=== PATIENT | male | born 1980 | race Caucasian/White ===

== ENCOUNTER 2018-05-03 07:19 | Emergency (ER) | payer SELFPAY ==
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
--- NOTE | 2018-05-03 08:44 | CR ---
INDICATION: Toe injury COMPARISON: none TECHNIQUE: Three-view left 5th toe FINDINGS: There is a oblique angulated displaced fracture within the distal shaft of the 5th proximal phalanx. 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 The distal phalanx appears intact. The MTP joint appears intact. No fractures are identified within the visualized adjacent 2nd 3rd and 4th toes. There is no evidence of a radiopaque foreign body. IMPRESSION: Angulated displaced fracture noted within the distal shaft of the 5th proximal phalanx Dictated by Rod Oliveros MD @ May 03 2018 8:41AM Signed by Dr. Rod Oliveros @ May 03 2018 8:43AM
--- NOTE | 2018-05-03 10:01 | CR ---
EXAMINATION: Left foot HISTORY: Pain COMPARISON: 05/03/2018 TECHNIQUE: 2 views FINDINGS/IMPRESSION: Proximal fifth phalanx fracture appears closer to anatomic alignment. Remaining osseous structures and joint spaces appear preserved. Mild lateral soft tissue swelling.
[2018-05-03 17:58] VITALS: BP 155/84
== END 2018-05-03 09:30 | disposition home or self-care (01) ==
LOC: MW.ED 07:19
DX: S92.512A Displaced fracture of proximal phalanx of left lesser toe(s), initial encounter for closed fracture (principal); E10.9 Type 1 diabetes mellitus without complications; W23.0XXA Caught, crushed, jammed, or pinched between moving objects, initial encounter
CPT/HCPCS: 73620-26-LT; 73620-LT; 73660-26-T4; 73660-T4; 99283

== ENCOUNTER 2018-06-25 09:28 | Emergency (ER) | payer MEDICAID, OTHER ==
[2018-06-25] MEDS ORDERED: Sodium Chloride 0.9% 1,000 ML IV ONE ×2 (09:55→12:26)
[2018-06-25] MEDS ORDERED: Pantoprazole 40 MG Vial IVPUSH ONE (09:55)
[2018-06-25] MEDS ORDERED: Ondansetron 4 MG/2 ML SDV IVPUSH ONE (09:55)
[2018-06-25] MEDS ORDERED: Ketorolac 30 MG/ML SDV IVPUSH ONE (09:55)
[2018-06-25] MEDS ORDERED: Sodium Chloride 0.9% 20 ML ONE (10:08)
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
[2018-06-25 10:48] LABS: CHLORIDE,CL 101 mmol/L (98-107); SODIUM,NA 139 mmol/L (136-148)
[2018-06-25] MEDS ORDERED: Morphine 2 MG/ML Syringe IVPUSH ONE (12:33)
[2018-06-25] MEDS ORDERED: Iopamidol 755 MG/ML 500 ML Multipack Bottle IVPUSH STA (12:55)
--- NOTE | 2018-06-25 13:18 | CR ---
INDICATION: Pain shortness of breath TECHNIQUE: Two view chest. FINDINGS: The lungs are clear. The heart, mediastinum and pulmonary vessels are of normal size. There is no evidence of pleural disease. IMPRESSION: Negative chest. Dictated by Dayanna Sandhu MD @ Jun 25 2018 1:16PM Signed by Dr. Dayanna Sandhu @ Jun 25 2018 1:16PM
--- NOTE | 2018-06-25 13:25 | CT ---
INDICATION: pain, vomiting, diarrhea with blood Indication: Pain. Vomiting. Diarrhea with blood. Technique: CT of the abdomen pelvis. 100 cc of Isovue 370 IV. Coronal/sagittal reconstruction images. Comparison: None. Findings: Lung bases: There is no pleural or pericardial effusion. The heart size is normal. There is no acute airspace disease. There is no basilar pneumothorax. Abdomen/pelvis: The hepatic morphology is normal. There are no inflammatory changes adjacent to the gallbladder. No dilation of intrahepatic biliary radicals. The spleen size is normal. There is a benign right renal cyst. This measures 11 millimeters in dimension. No perinephric inflammatory changes. No striated nephrogram. The spleen size is normal. There is no pancreatic mass, pancreatic duct dilation, or glandular atrophy. Pelvic phleboliths. Urinary bladder is within normal limits. There is no wall thickening within the small bowel or colon. There is equivocal wall thickening present in the transverse colon, which may be secondary to collapse. No mucosal hyper enhancement. No pneumatosis or portal venous gas. No adenopathy by size criteria in the pelvis, retroperitoneum, gastrohepatic ligament, small bowel mesentery. There is questionable narrowing of the proximal celiac axis, which could be secondary to median arcuate ligament compression. This is seen best on image 36 of series 201. The bone windows demonstrate a sclerotic lesion in the right iliac bone, which measures 7 millimeters in dimension. This is indeterminate. No lytic bone lesions are identified. Impression: 1. Equivocal wall thickening within the transverse colon, which may be secondary to collapse. Infectious colitis is an additional consideration given the clinical presentation. 2. There is no evidence for small bowel or colonic obstruction. No pneumatosis, portal venous gas, free air, or drainable fluid collection. 3. Suspected compression of the origin of the celiac axis. Consider median arcuate ligament syndrome. CT angiogram may be obtained on a nonemergent basis to further assess. 4. SMA and JOSE are widely patent. Dictated by Brody Gage MD @ 06/25/2018 1:24:48 PM Please note that all CT scans at this facility use dose modulation, iterative reconstruction, and/or weight-based dosing when appropriate to reduce radiation dose to as low as reasonably achievable. Dictated by: Brody Gage MD @ 06/25/2018 13:25:03 (Electronically Signed)
[2018-06-25 18:16] VITALS: BP 114/72
== END 2018-06-25 14:48 | disposition home or self-care (01) ==
LOC: MW.ED 09:28
DX: K52.9 Noninfective gastroenteritis and colitis, unspecified (principal); E10.9 Type 1 diabetes mellitus without complications
CPT/HCPCS: 36600; 71046; 74177; 80053; 81001; 82009; 82803; 82962; 83690; 84484; 85025; 87804; 93005; 96361; 96374; 96375; 99284; C9113; J1885; J2270; J2405; J7040; Q9967

== ENCOUNTER 2022-01-19 08:27 | Day surgery (SDC) | payer OTHER ==
[~2022-01-19 08:27] MED LIST: Lactated Ringers 1,000 ML IV SCH
[2022-01-19] MEDS ORDERED: Lidocaine 2% 5 ML SDV ONE (09:12)
[2022-01-19] MEDS ORDERED: Propofol 200 MG/20 ML SDV ONE ×3 (09:12→10:14)
[2022-01-19] MEDS ORDERED: fentaNYL 100 MCG/2 ML SDV ONE (09:13)
[2022-01-19] MEDS ORDERED: Lactated Ringers 1,000 ML IV SCH (10:30)
[2022-01-19 10:55] VITALS: PULSE 61
[2022-01-19 12:04] VITALS: BP 105/59
== END 2022-01-19 11:50 | disposition home or self-care (01) ==
LOC: MW.SDS 08:27
PROVIDERS: ATTEND Surgery
DX: Z12.11 Encounter for screening for malignant neoplasm of colon (principal); D12.8 Benign neoplasm of rectum; K62.5 Hemorrhage of anus and rectum; E10.9 Type 1 diabetes mellitus without complications; F17.200 Nicotine dependence, unspecified, uncomplicated; Z80.0 Family history of malignant neoplasm of digestive organs; Z79.84 Long term (current) use of oral hypoglycemic drugs
CPT/HCPCS: 45385; 82947; J2704; J3010; J7120

== ENCOUNTER 2022-04-20 19:10 | Emergency (ER) | payer MEDICAID ==
[2022-04-20] MEDS ORDERED: Sodium Chloride 0.9% 1,000 ML IV ONE ×2 (20:02→21:21)
[2022-04-20 21:11] LABS: CARBON DIOXIDE,CO2 28.2 mmol/L (21.0-32.0); POTASSIUM,K 4.2 mmol/L (3.5-5.1)
[2022-04-20] MEDS ORDERED: Ondansetron 4 MG/2 ML SDV IVPUSH ONE (21:26)
[2022-04-20 23:08] VITALS: PULSE 86
[2022-04-20 23:24] VITALS: BP 135/81
== END 2022-04-20 23:00 | disposition home or self-care (01) ==
LOC: MW.ED 19:10
DX: K52.9 Noninfective gastroenteritis and colitis, unspecified (principal); E10.9 Type 1 diabetes mellitus without complications; Z91.014 Allergy to mammalian meats; Z91.14 Patient's other noncompliance with medication regimen
CPT/HCPCS: 36415; 71045; 80053; 81003; 82009; 82947; 83690; 83735; 84443; 84484; 85025; 93005; 96361; 96374; 99284; J2405; J7030

== ENCOUNTER 2023-03-03 13:27 | Emergency (ER) | payer MEDICAID ==
[2023-03-03] MEDS ORDERED: Sodium Chloride 0.9% 1,000 ML IV ONE (13:30)
[2023-03-03] MEDS ORDERED: Ketorolac 30 MG/ML SDV IVPUSH ONE (14:30)
[2023-03-03] MEDS ORDERED: Ondansetron 4 MG/2 ML SDV IVPUSH ONE (14:30)
[2023-03-03 14:34] LABS: BASE EXCESS VENOUS 2.4 (-2.0-3.0); PH,VENOUS 7.41 (7.31-7.41)
[2023-03-03 14:40] LABS: APPEARANCE,URINE CLEAR; BILIRUBIN,URINE NEGATIVE (NEGATIVE); COLOR,URINE YELLOW; GLUCOSE,URINE NEGATIVE (NEGATIVE); KETONES,URINE 15 mg/dL (NEGATIVE); LEUKOCYTE ESTERASE,URINE NEGATIVE (NEGATIVE); NITRITE,URINE NEGATIVE (NEGATIVE); OCCULT BLOOD,URINE NEGATIVE (NEGATIVE); PROTEIN,URINE 30 mg/dL (NEGATIVE); UROBILINOGEN,URINE 0.2 EU/dL (<2.0)
[2023-03-03 14:42] LABS: BASOPHILS ABSOLUTE AUTO 0.03 K/uL (0.00-0.20); BASOPHILS PERCENT AUTO 0.4 % (0.0-1.0); EOSINOPHILS ABSOLUTE AUTO 0.01 K/uL (0.00-0.45); EOSINOPHILS PERCENT AUTO 0.1 % (0.0-6.0); HEMATOCRIT 43.2 % (42.0-52.0); HEMOGLOBIN 14.9 g/dL (14.0-18.0); IMMATURE GRAN ABSOLUTE AUTO 0.02 K/uL (0.00-0.05); IMMATURE GRAN PERCENT AUTO 0.3 % (0.0-0.4); LYMPHOCYTES ABSOLUTE AUTO 1.36 K/uL (1.00-4.80); LYMPHOCYTES PERCENT AUTO 18.7 % (24.0-44.0); MEAN CORPUSCULAR HEMOGLOBIN 29.7 pg (28.0-32.0); MEAN CORPUSCULAR HGB CONC 34.5 g/dL (32.0-36.0); MEAN CORPUSCULAR VOLUME 86.1 fL (83.0-99.0); MONOCYTES ABSOLUTE AUTO 0.62 K/uL (0.00-0.80); MONOCYTES PERCENT AUTO 8.5 % (0.0-8.0); NEUTROPHILS ABSOLUTE AUTO 5.22 K/uL (1.80-7.70); PLATELET COUNT,PLT 274 K/uL (150-400); RED BLOOD CELL COUNT 5.02 M/uL (4.52-5.90); WHITE BLOOD CELL COUNT,WBC 7.26 K/uL (3.9-11.3)
[2023-03-03] MEDS ORDERED: Morphine 4 MG/ML Syringe IVPUSH ONE (14:57)
[2023-03-03 15:04] LABS: LACTIC ACID 0.9 mmol/L (0.4-2.0)
[2023-03-03 15:06] LABS: BACTERIA,URINE RARE (NEGATIVE); EPITHELIAL CELLS,URINE NOT SEEN (NONE-FEW); RBC,URINE 0-1 (0-2/HPF); WBC,URINE 0-1 (0-5/HPF)
[2023-03-03 15:07] LABS: MUCUS,URINE LIGHT (NONE-MOD)
[2023-03-03 15:28] LABS: A/G RATIO 1.1 (0.9-1.6); ALBUMIN 3.9 g/dL (3.4-5.0); BILIRUBIN TOTAL 0.5 mg/dL (0.2-1.0); CALCIUM 9.3 mg/dL (8.5-10.1); CARBON DIOXIDE,CO2 25.8 mmol/L (21.0-32.0); CREATININE 0.9 mg/dL (0.8-1.3); EST CRCL DRUG DOSING (CG) 129.93 mL/min; MAGNESIUM 1.8 mg/dL (1.8-2.4); POTASSIUM,K 4.2 mmol/L (3.5-5.1); PROTEIN TOTAL,TP 7.4 g/dL (6.4-8.2)
[2023-03-03 16:26] VITALS: BP 144/94; PULSE 73
== END 2023-03-03 16:25 | disposition home or self-care (01) ==
LOC: MW.ED 13:27
DX: K29.70 Gastritis, unspecified, without bleeding (principal); E10.8 Type 1 diabetes mellitus with unspecified complications; Z79.4 Long term (current) use of insulin
CPT/HCPCS: 36415; 80053; 81001; 82009; 82803; 83605; 83690; 83735; 85025; 96361; 96374; 96375; 99284; J1885; J2270; J2405; J7030

== ENCOUNTER 2023-03-24 11:57 | Emergency (ER) | payer MEDICAID ==
[2023-03-24 12:23] VITALS: BP 165/102
[2023-03-24] MEDS ORDERED: Sodium Chloride 0.9% 1,000 ML IV ONE (13:25)
[2023-03-24] MEDS ORDERED: Ketorolac 30 MG/ML SDV IVPUSH ONE (13:25)
[2023-03-24] MEDS ORDERED: Ondansetron 4 MG/2 ML SDV IVPUSH ONE (13:25)
[2023-03-24 13:50] LABS: BASE EXCESS VENOUS 4.4 (-2.0-3.0); PH,VENOUS 7.43 (7.31-7.41)
[2023-03-24 13:52] LABS: BASOPHILS ABSOLUTE AUTO 0.01 K/uL (0.00-0.20); BASOPHILS PERCENT AUTO 0.1 % (0.0-1.0); HEMATOCRIT 44.8 % (42.0-52.0); HEMOGLOBIN 15.4 g/dL (14.0-18.0); IMMATURE GRAN ABSOLUTE AUTO 0.02 K/uL (0.00-0.05); IMMATURE GRAN PERCENT AUTO 0.3 % (0.0-0.4); LYMPHOCYTES ABSOLUTE AUTO 0.92 K/uL (1.00-4.80); LYMPHOCYTES PERCENT AUTO 12.4 % (24.0-44.0); MEAN CORPUSCULAR HEMOGLOBIN 29.5 pg (28.0-32.0); MEAN CORPUSCULAR HGB CONC 34.4 g/dL (32.0-36.0); MEAN CORPUSCULAR VOLUME 85.8 fL (83.0-99.0); MEAN PLATELET VOLUME 10.8 fL (9.4-12.4); MONOCYTES ABSOLUTE AUTO 0.51 K/uL (0.00-0.80); MONOCYTES PERCENT AUTO 6.9 % (0.0-8.0); NEUTROPHILS ABSOLUTE AUTO 5.98 K/uL (1.80-7.70); NEUTROPHILS PERCENT AUTO 80.3 % (41.0-71.0); PLATELET COUNT,PLT 274 K/uL (150-400); RED BLOOD CELL COUNT 5.22 M/uL (4.52-5.90); WHITE BLOOD CELL COUNT,WBC 7.44 K/uL (3.9-11.3)
[2023-03-24 14:28] LABS: APPEARANCE,URINE CLOUDY; BILIRUBIN,URINE NEGATIVE (NEGATIVE); COLOR,URINE YELLOW; GLUCOSE,URINE NEGATIVE (NEGATIVE); KETONES,URINE >=80 mg/dL (NEGATIVE); LEUKOCYTE ESTERASE,URINE NEGATIVE (NEGATIVE); NITRITE,URINE NEGATIVE (NEGATIVE); OCCULT BLOOD,URINE NEGATIVE (NEGATIVE); PROTEIN,URINE TRACE mg/dL (NEGATIVE)
[2023-03-24] MEDS ORDERED: Alum Hydro/Mag Hydro/Simeth XS 15 ML, Metoclopramide 5 MG, Lidocaine 2% 5 ML PO ONE ×3 (14:38)
[2023-03-24 14:39] LABS: AMPHETAMINES SCREEN, URINE NEGATIVE (CUTOFF=500); BARBITURATE SCREEN,URINE NEGATIVE (CUTOFF=200); BENZODIAZEPINES SCREEN,URINE NEGATIVE (CUTOFF=150); BUPRENORPHINE SCREEN,URINE NEGATIVE (CUTOFF=10); METHADONE SCREEN, URINE NEGATIVE (CUTOFF=200); METHAMPHETAMINES SCREEN, URINE NEGATIVE (CUTOFF=500); OXYCODONE SCREEN,URINE NEGATIVE (CUT0FF=100); PCP SCREEN,URINE NEGATIVE (CUTOFF=25); THC SCREEN,URINE 20 NG/ML PRESUMPTIVE POSITIVE (CUTOFF=50)
[2023-03-24 14:41] LABS: AMORPHOUS SEDIMENT,URINE MODERATE (NEGATIVE); BACTERIA,URINE 1+ (NEGATIVE); EPITHELIAL CELLS,URINE RARE (NONE-FEW); RBC,URINE 0-1 (0-2/HPF); WBC,URINE 0-3 (0-5/HPF)
[2023-03-24] MEDS ORDERED: Sodium Chloride 0.9% 500 ML IV SCH (14:45)
[2023-03-24 14:48] LABS: LACTIC ACID 1.3 mmol/L (0.4-2.0)
[2023-03-24 14:59] LABS: A/G RATIO 1.2 (0.9-1.6); ALBUMIN 4.1 g/dL (3.4-5.0); BILIRUBIN TOTAL 0.8 mg/dL (0.2-1.0); CALCIUM 9.5 mg/dL (8.5-10.1); CREATININE 0.9 mg/dL (0.8-1.3); EST CRCL DRUG DOSING (CG) 117.66 mL/min; MAGNESIUM 1.7 mg/dL (1.8-2.4); POTASSIUM,K 4.1 mmol/L (3.5-5.1); PROTEIN TOTAL,TP 7.5 g/dL (6.4-8.2)
[2023-03-24 15:18] VITALS: PULSE 74
== END 2023-03-24 15:17 | disposition home or self-care (01) ==
LOC: MW.ED 11:57
DX: R11.2 Nausea with vomiting, unspecified (principal); E10.9 Type 1 diabetes mellitus without complications; Z79.899 Other long term (current) drug therapy
CPT/HCPCS: 36415; 80053; 80305; 81001; 82803; 83605; 83690; 83735; 85025; 96361; 96374; 96375; 99284; A9270; J1885; J2405; J7030; J7040

== ENCOUNTER 2023-06-03 07:48 | Emergency (ER) | payer BC ==
[2023-06-03] MEDS: HYDROmorphone 1 MG/ML Syringe IM ONE (08:13)
[2023-06-03] MEDS: Ketorolac 30 MG/ML SDV IM ONE (08:13)
[2023-06-03] MEDS: predniSONE 20 MG Tab PO STA (08:18)
[2023-06-03 08:52] VITALS: BP 160/96; PULSE 75
== END 2023-06-03 09:06 | disposition home or self-care (01) ==
LOC: MW.ED 07:48
DX: M54.42 Lumbago with sciatica, left side (principal); E10.9 Type 1 diabetes mellitus without complications; Z79.4 Long term (current) use of insulin; Z79.899 Other long term (current) drug therapy
CPT/HCPCS: 96372; 99283; A9270; J1170; J1885

== ENCOUNTER 2023-06-05 12:05 | Emergency (ER) | payer BC ==
[2023-06-05] MEDS: Ketorolac 30 MG/ML SDV IM ONE (12:36)
[2023-06-05] MEDS: HYDROmorphone 1 MG/ML Syringe IM ONE (12:37)
[2023-06-05 12:48] VITALS: BP 153/92; PULSE 89
== END 2023-06-05 12:45 | disposition home or self-care (01) ==
LOC: MW.ED 12:05
DX: M54.9 Dorsalgia, unspecified (principal); E10.9 Type 1 diabetes mellitus without complications; Z79.4 Long term (current) use of insulin; Z79.899 Other long term (current) drug therapy; Z75.8 Other problems related to medical facilities and other health care
CPT/HCPCS: 96372; 99283; J1170; J1885

== ENCOUNTER 2023-06-06 16:08 | Emergency (ER) | payer BC ==
[2023-06-06] MEDS: Ketorolac 30 MG/ML SDV IM STA (16:25)
[2023-06-06] MEDS: HYDROmorphone 1 MG/ML Syringe IM ONE (16:26)
[2023-06-06 17:57] VITALS: BP 142/83; PULSE 81
== END 2023-06-06 17:56 | disposition home or self-care (01) ==
LOC: MW.ED 16:08
DX: M54.42 Lumbago with sciatica, left side (principal); E10.9 Type 1 diabetes mellitus without complications; Z79.899 Other long term (current) drug therapy; Z79.4 Long term (current) use of insulin; Z75.8 Other problems related to medical facilities and other health care
CPT/HCPCS: 72131; 96372; 99284; J1170; J1885; 99283